=== PATIENT | male | born 1960 | race Caucasian/White ===

== ENCOUNTER 2019-12-21 15:43 | Observation (INO) | payer BC, SELFPAY ==
--- NOTE | 2019-12-21 15:45 | CTR_ITS ---
PROCEDURE INFORMATION: Exam: CT Abdomen And Pelvis With Contrast Exam date and time: 12/21/2019 6:26 PM Age: 59 years old Clinical indication: Abdominal pain; Patient HX: Adb pain; Additional info: Abd pain TECHNIQUE: Imaging protocol: Computed tomography of the abdomen and pelvis with intravenous contrast. Radiation optimization: All CT scans at this facility use at least one of these dose optimization techniques: automated exposure control; mA and/or kV adjustment per patient size (includes targeted exams where dose is matched to clinical indication); or iterative reconstruction. Contrast material: [id number]; Contrast volume: 95 ml; Contrast route: INTRAVENOUS (IV); COMPARISON: No relevant prior studies available. RADIATION DOSE METRICS: Total DLP (mGy-cm): 1504.09 FINDINGS: Liver: Normal. No mass. Gallbladder and bile ducts: Normal. No calcified stones. No ductal dilation. Pancreas: Normal. No ductal dilation. Spleen: Normal. No splenomegaly. Adrenals: Normal. No mass. Kidneys and ureters: Likely benign cysts in both kidneys, Hounsfield units measuring less than 20. No follow-up recommended. Nonobstructing bilateral renal calculi. No hydronephrosis. Stomach and bowel: Unremarkable. No obstruction. No mucosal thickening. Appendix: The appendix is inflamed with wall thickening and enhancement, gas and fluid in the lumen, an outer wall diameter of 13 mm, and periappendiceal fat stranding. Intraperitoneal space: Unremarkable. No free air. No significant fluid collection. Vasculature: Unremarkable. No abdominal aortic aneurysm. Lymph nodes: Unremarkable. No enlarged lymph nodes. Urinary bladder: Unremarkable as visualized. Reproductive: Prostate calcifications. Bones/joints: Chronic bilateral L5 pars fractures with grade 1 anterolisthesis. Soft tissues: Small bilateral fat containing inguinal hernias. CT/CT abdomen pelvis w con* [id number] IMPRESSION: 1. Acute appendicitis. 2. Nonobstructing renal calculi. COMMENTS: Consistent with the [employer]'s Incidental Findings Committee white paper (J Am Slick Radiol 2018): Any incidental renal lesion less than 1 cm or classified as too small to characterize, or any incidental cystic renal lesion characterized as simple-appearing, is likely benign. No follow-up imaging is recommended for these lesions per consensus recommendations based on imaging criteria. Radiation Dose CTDIVOL = (mGy): DLP = 1504.09 (mGy-cm)
[2019-12-21 16:00] VITALS: BP 160/92; PULSE 82; RESP 16; TEMP 36.9; O2SAT 97; BMI 19.5
[2019-12-21 16:32] LABS: Basophils # 0.1 10^3/uL (0.0-0.1); Basophils % 0.2 %; Eosinophils # 0.1 10^3/uL (0.0-0.8); Eosinophils % 0.2 %; Hematocrit 50.3 % (42.0-52.0); Hemoglobin 16.8 g/dL (11.7-16.6); Lymphocytes # 2.7 10^3/uL (0.8-4.8); Lymphocytes % 12.4 %; Mean Corpuscular HGB Conc 33.4 g/dL (30.0-36.0); Mean Corpuscular Hemoglobin 30.3 pg (28.0-34.0); Mean Corpuscular Volume 90.6 fL (80-94); Mean Platelet Volume 11.4 fL (7.4-10.4); Monocytes # 1.7 10^3/uL (0.2-0.9); Monocytes % 7.5 %; Neutrophils # 17.53 10^3/uL (1.8-7.7); Neutrophils % 79.3 %; Nucleated Red Blood Cells % 0 %; Platelet Count 215 10^3/cmm (130-400); Red Blood Count 5.55 10^6/uL (4.1-5.3); White Blood Count 22.1 10^3/uL (4.0-10.0)
[2019-12-21 16:51] LABS: Alanine Aminotransferase 17 U/L (0-41); Albumin Level 4.6 g/dL (3.5-5.2); Alkaline Phosphatase 98 IU/L (40-130); Aspartate Amino Transferase 15 U/L (0-40); Blood Urea Nitrogen 16 mg/dL (6-20); Calcium 9.9 mg/dL (8.5-10.5); Carbon Dioxide 23 mmol/L (22-29); Chloride 100 mmol/L (98-107); Glomerular Filtration Rate 86.4 mL/min (90-130); Glucose 98 mg/dL (65-115); Lipase 25 U/L (13-60); Osmolality Calculated 285 mOsm/kg (285-295); Sodium 137 mmol/L (136-145); Total Bilirubin 1.2 mg/dL (0.15-1.2); Total Protein 7.6 g/dL (6.6-8.7)
[2019-12-21 16:54] LABS: Anion Gap 17.4 (5-19); Potassium 3.4 mmol/L (3.5-5.1)
--- NOTE | 2019-12-21 17:56 | PC.NURSE ---
PATIENT UPDATED ON WAIT, ASSESSED. NO IMMEDIATE CONCERNS ARE NOTED. VS OBTAINED.
[2019-12-21 17:57] VITALS: BP 170/99; PULSE 79; RESP 17; O2SAT 99
[2019-12-21] MEDS: iohexol 300 mg/mL 100 mL Btl IV (18:56)
--- NOTE | 2019-12-21 19:03 | W.ED.ABDPA2 ---
HPI - Abdominal Pain General: Chief Complaint: Abdominal Pain Stated Complaint: sent from [facility] cat scan/possible intesine block Time Seen by Provider: 12/21/19 17:52 Source: patient Mode of arrival: ambulatory Limitations: no limitations History of Present Illness: HPI narrative: Raman is a nice 59-year-old male comes in complaining of abdominal pain. He states the pain feels like pressure diffusely throughout his abdomen. He has had associated nausea and vomiting but denies any hematic emesis, coffee-ground emesis or bloody or tarry stools. He denies any fevers or chills. He has not had any urinary symptoms such as dysuria or urinary frequency or urgency. Patient states he has been taking naproxen regularly until yesterday. He had been taking this for knee pain. Patient said he had a small bowel movement this morning that was nonbloody or non-melanotic. He came in after he was told by Mao Champion he needed to have a CT scan of his abdomen pelvis per the provider there. Patient states overall he feels a little better but still has pain diffusely throughout his abdomen. Associated Symptoms: Reports nausea and vomiting; Denies chills, coffee ground emesis, constipation, GI cramping, diarrhea, dysuria, fever(s), heartburn, hematochezia, hematuria, hematemesis, melena and syncope Review of Systems Const: Denies: fever(s), chills, body aches, fatigue, malaise or diaphoresis Eyes: Denies: change in vision, blurry vision, photophobia, eye discomfort, eye discharge, eye redness or yellow eyes ENMT: Denies: throat pain, odynophagia, hoarseness, swelling of lips/tongue, ear or mastoid pain, ear discharge, change in hearing or nasal discharge Card: Denies: chest pain, palpitations, irregular heart rhythm, edema, lightheadedness, syncope, pre-syncope, dyspnea on exertion or orthopnea Resp: Denies: dyspnea, productive cough, non-productive cough, wheezing, hemoptysis or chest congestion GI: Reports: abdominal pain, nausea and vomiting; Denies: hematemesis, coffee ground emesis, heartburn, diarrhea, constipation, GI cramping, hematochezia or melena : Denies: flank pain, dysuria, urinary frequency, urinary urgency or hematuria Musc: Denies: neck pain, back pain, extremity pain, extremity swelling, joint pain, joint swelling, joint redness, joint warmth or joint stiffness Skin/Breast: Denies: rash, pruritus, erythema, skin pain or skin tenderness Neuro: Denies: headache(s), numbness in extremities, weakness in extremities, sensory changes, lack of coordination, difficulty walking, dizziness, vertigo, confusion, Slurred speech present or seizure-like activity Ab/Lymph: Denies: easy bruising, easy bleeding, petechiae, purpura or enlarged lymph nodes All/Imm: Denies: urticaria, throat swelling, tongue swelling, facial swelling or acute wheezing PFSH ED PFSH: Medical History No pertinent past medical history Surgical History No pertinent past surgical history Physical Exam Const: COMMON NORMALS: no acute distress, patient oriented x3, no limitations and alert GENERAL APPEARANCE: cooperative HENMT: COMMON NORMALS: normocephalic, atraumatic, external ears normal, EAC's normal and Normal external nose present HEAD & SCALP: normal to inspection, normocephalic and atraumatic FACE & SINUS: normal facial exam and face symmetric NOSE: Normal external nose present and Normal nares present EXTERNAL EAR: Yes external ears normal EXTERNAL AUDITORY CANAL: EAC's normal MOUTH: Normal oral and palatal mucosa present, lip normal and tongue normal Eye: COMMON NORMALS: Equal, round and reactive pupils present and conjunctivae normal GENERAL EYE: appearance normal, both eyes and all related structures ALIGNMENT: Yes alignment normal PERIORBITAL: periorbital findings normal EYELID: eyelids normal CONJUNCTIVA: Yes conjunctivae normal SCLERA: sclerae normal PUPIL: Yes Equal, round and reactive pupils present Neck/C-Spine: COMMON NORMALS: full ROM, no lymphadenopathy, supple, no meningeal signs and no JVD GENERAL: Yes normal visual inspection and Yes trachea midline Chest: COMMONS NORMALS: normal inspection of the chest and normal palpation of entire chest wall Resp: COMMON NORMALS: normal respiratory effort, No retractions, No use of accessory muscles and clear to auscultation bilaterally EFFORT & INSPECTION: Yes able to speak in complete sentences and Yes symmetric chest movement AUSCULTATION: clear to auscultation bilaterally, no crackles, no rales, no rhonchi and no wheezes Cardio: COMMON NORMALS: no JVD, regular rate, regular rhythm, S1 normal heart sound present and S2 normal heart sound present RATE: regular rate RHYTHM: regular rhythm HEART SOUNDS: S1 normal heart sound present, S2 normal heart sound present, no click, no gallops, no murmurs and no rubs GI: COMMON NORMALS: Soft to palpation and No hepatosplenomegaly present PALPATION: Yes Soft to palpation, Yes Tenderness to palpation present (GI) (Mild diffusely.), No Guarding due to palpation present (GI), No Rigid due to palpation, Yes No hepatosplenomegaly present, No Hernia present, No Palpable mass present and No Pulsatile mass present : COMMON NORMALS: Yes no CVA tenderness BLADDER/KIDNEY EXAM: Yes no CVA tenderness Back/Pelvis: COMMON NORMALS: no CVA tenderness, thoracic and lumbar spine normal to inspection, no thoracic nor lumbar tenderness and thoraco-lumbar ROM normal Extremity: COMMON NORMALS: normal to inspection, full ROM, capillary refill normal, no joint enlargement, no clubbing, cyanosis or edema and no calf tenderness Neuro: COMMON NORMALS: patient oriented x3, CN's II-XII intact bilaterally, moves all extremities, no focal motor deficits and no sensory deficits noted SENSORIUM/ORIENTATION: Yes alert MENINGEAL SIGNS: Yes no meningeal signs SPEECH: speech normal Psych: COMMON NORMALS: mental status grossly normal, Normal thought process present, cooperative, normal affect, speech normal and activity/motor behavior normal SPEECH: Yes normal speech THOUGHT PROCESS: Normal thought process present Skin: COMMON NORMALS: no rashes or lesions noted, turgor normal, no jaundice, no petechiae and no mottling GENERAL SKIN EXAM: no rashes or lesions noted and turgor normal Course Vital Signs: Vital signs: Vital Signs Temperature 98.5 F 12/21/19 21:00 Pulse Rate 78 12/21/19 21: Respiratory Rate 18 12/21/19 21:22 Blood Pressure 160/78 12/21/19 21: Pulse Oximetry 98 12/21/19 21: MDM - Abdominal Pain MDM Narrative: Medical decision making narrative: The case was reviewed with Dr. Lowery. CT shows appendicitis but no definitive rupture or abscess. The patient is tender diffusely but there is no signs of definite peritonitis. We will cover him with Cipro and Flagyl he is allergic to Zosyn. His pain is under control and he is not vomiting. Dr. Lowery plans for surgery in the a.m. Lab Data: Attestation: I reviewed the patient's lab results. Labs: Lab Results 12/21/19 12/21/19 12/21/19 Range/Units 16:25 16:25 19:18 WBC 22.1 H (4.0-10.0) 10^3/ uL RBC 5.55 H (4.1-5.3) 10^6/u L Hgb 16.8 H (11.7-16.6) g/dL Hct 50.3 (42.0-52.0) % MCV 90.6 (80-94) fL MCH 30.3 (28.0-34.0) pg MCHC 33.4 (30.0-36.0) g/dL RDW 13.0 (12.1-15.1) % Plt Count 215 (130-400) 10^3/c mm MPV 11.4 H (7.4-10.4) fL Neut % (Auto) 79.3 % Lymph % (Auto) 12.4 % [place] % (Auto) 7.5 % Eos % (Auto) 0.2 % Baso % (Auto) 0.2 % Neut # (Auto) 17.53 H (1.8-7.7) 10^3/u L Lymph # (Auto) 2.7 (0.8-4.8) 10^3/u L [place] # (Auto) 1.7 H (0.2-0.9) 10^3/u L Eos # (Auto) 0.1 (0.0-0.8) 10^3/u L Baso # (Auto) 0.1 (0.0-0.1) 10^3/u L Nucleated RBC % (a uto) 0 % Nucleated RBCs # 0.0 /100WBC Sodium 137 (136-145) mmol/L Potassium 3.4 L (3.5-5.1) mmol/L Chloride 100 (98-107) mmol/L Carbon Dioxide 23 (22-29) mmol/L Anion Gap 17.4 (5-19) BUN 16 (6-20) mg/dL Creatinine 0.9 (0.7-1.2) mg/dL GFR Calculation 86.4 L (90-130) mL/min Glucose 98 (65-115) mg/dL Calculated Osmolal ity 285 (285-295) mOsm/k g Lactic Acid (0.5-2.2) mmol/L Calcium 9.9 (8.5-10.5) mg/dL Magnesium 2.3 (1.7-2.3) mg/dL Total Bilirubin 1.2 (0.15-1.2) mg/dL AST 15 (0-40) U/L ALT 17 (0-41) U/L Alkaline Phosphata se 98 (40-130) IU/L Total Protein 7.6 (6.6-8.7) g/dL Albumin 4.6 (3.5-5.2) g/dL Globulin 3.0 (1.3-4.6) g/dL Lipase 25 (13-60) U/L 12/21/19 Range/Units 19:28 WBC (4.0-10.0) 10^3/ uL RBC (4.1-5.3) 10^6/u L Hgb (11.7-16.6) g/dL Hct (42.0-52.0) % MCV (80-94) fL MCH (28.0-34.0) pg MCHC (30.0-36.0) g/dL RDW (12.1-15.1) % Plt Count (130-400) 10^3/c mm MPV (7.4-10.4) fL Neut % (Auto) % Lymph % (Auto) % [place] % (Auto) % Eos % (Auto) % Baso % (Auto) % Neut # (Auto) (1.8-7.7) 10^3/u L Lymph # (Auto) (0.8-4.8) 10^3/u L [place] # (Auto) (0.2-0.9) 10^3/u L Eos # (Auto) (0.0-0.8) 10^3/u L Baso # (Auto) (0.0-0.1) 10^3/u L Nucleated RBC % (a uto) % Nucleated RBCs # /100WBC Sodium (136-145) mmol/L Potassium (3.5-5.1) mmol/L Chloride (98-107) mmol/L Carbon Dioxide (22-29) mmol/L Anion Gap (5-19) BUN (6-20) mg/dL Creatinine (0.7-1.2) mg/dL GFR Calculation (90-130) mL/min Glucose (65-115) mg/dL Calculated Osmolal ity (285-295) mOsm/k g Lactic Acid 0.8 (0.5-2.2) mmol/L Calcium (8.5-10.5) mg/dL Magnesium (1.7-2.3) mg/dL Total Bilirubin (0.15-1.2) mg/dL AST (0-40) U/L ALT (0-41) U/L Alkaline Phosphata se (40-130) IU/L Total Protein (6.6-8.7) g/dL Albumin (3.5-5.2) g/dL Globulin (1.3-4.6) g/dL Lipase (13-60) U/L Imaging Data ^: CT Abd/Pel: Radiologist's impression: [address] [place] [address] CT Scan Report Signed with Addenda Patient: Raman John Unit #: [id number] : 1960 Age/Sex: 59 / M ADM Date: 12/21/19 Loc: ER Room/Bed: Attending Dr: Ordering Provider/Ordering MD: Roby Farooq MD Date of Service: 12/21/19 Procedure(s): CT abdomen pelvis w con* [id number] Accession Number(s): [id number] Report Number: [id number]/CT abdomen pelvis w con* [id number] THIS REPORT CONTAINS FINDINGS THAT MAY BE CRITICAL TO PATIENT CARE. The findings were verbally communicated via telephone conference with Dr Stern at 8:04 PM CDT on 12/21/2019. The findings were acknowledged and understood. Radiation Dose CTDIVOL = (mGy): DLP = 1504.09 (mGy-cm) Addendum Dictated By: Sean Bonilla Addendum Signed By: Sean Bonilla Signed Date/Time: 12/21/19 2 005 Addendum Cosigned By: PROCEDURE INFORMATION: Exam: CT Abdomen And Pelvis With Contrast Exam date and time: 12/21/2019 6:26 PM Age: 59 years old Clinical indication: Abdominal pain; Patient HX: Adb pain; Additional info: Abd pain TECHNIQUE: Imaging protocol: Computed tomography of the abdomen and pelvis with intravenous contrast. Radiation optimization: All CT scans at this facility use at least one of these dose optimization techniques: automated exposure control; mA and/or kV adjustment per patient size (includes targeted exams where dose is matched to clinical indication); or iterative reconstruction. Contrast material: [id number]; Contrast volume: 95 ml; Contrast route: INTRAVENOUS (IV); COMPARISON: No relevant prior studies available. RADIATION DOSE METRICS: Total DLP (mGy-cm): 1504.09 FINDINGS: Liver: Normal. No mass. Gallbladder and bile ducts: Normal. No calcified stones. No ductal dilation. Pancreas: Normal. No ductal dilation. Spleen: Normal. No splenomegaly. Adrenals: Normal. No mass. Kidneys and ureters: Likely benign cysts in both kidneys, Hounsfield units measuring less than 20. No follow-up recommended. Nonobstructing bilateral renal calculi. No hydronephrosis. Stomach and bowel: Unremarkable. No obstruction. No mucosal thickening. Appendix: The appendix is inflamed with wall thickening and enhancement, gas and fluid in the lumen, an outer wall diameter of 13 mm, and periappendiceal fat stranding. Intraperitoneal space: Unremarkable. No free air. No significant fluid collection. Vasculature: Unremarkable. No abdominal aortic aneurysm. Lymph nodes: Unremarkable. No enlarged lymph nodes. Urinary bladder: Unremarkable as visualized. Reproductive: Prostate calcifications. Bones/joints: Chronic bilateral L5 pars fractures with grade 1 anterolisthesis. Soft tissues: Small bilateral fat containing inguinal hernias. CT/CT abdomen pelvis w con* [id number] IMPRESSION: 1. Acute appendicitis. 2. Nonobstructing renal calculi. COMMENTS: Consistent with the [place] [employer]'s Incidental Findings Committee white paper (J Am Slick Radiol 2018): Any incidental renal lesion less than 1 cm or classified as too small to characterize, or any incidental cystic renal lesion characterized as simple-appearing, is likely benign. No follow-up imaging is recommended for these lesions per consensus recommendations based on imaging criteria. Radiation Dose CTDIVOL = (mGy): DLP = 1504.09 (mGy-cm) Dictated By: Sean Bonilla Signed By: Sean Bonilla Signed Date/Time: 12/21/192003 DD/ 02 Discharge Plan Discharge Patient Disposition: Admitted As Inpatient Admit Provider: Bautista Lowery Clinical Impression: Acute appendicitis Qualifiers: Acute appendicitis type: unspecified acute appendicitis type Qualified Code(s): K35.80 - Unspecified acute appendicitis Condition: Stable Discharge Date/Time: 12/21/19 21:23 Coding Level of Care Code ED [employer] Pcb Draftsman for Chg Fwd Exam Comprehensive
[2019-12-21] MEDS: ondansetron 2 mg/ML SDV 2 mL 4 MG IVP (19:09)
[2019-12-21] MEDS: ciprofloxacin 400 MG/200 ML PREMIX 200 MG IV (19:14)
[2019-12-21] MEDS: metroNIDAZOLE IV 500 MG/100 ML PREMIX 100 MG IV (19:19)
[2019-12-21 19:56] LABS: Lactic Sepsis W/Reflex 0.8 mmol/L (0.5-2.2)
[2019-12-21 19:59] LABS: Magnesium 2.3 mg/dL (1.7-2.3)
[2019-12-21 20:00] VITALS: PULSE 79; RESP 16; TEMP 36.9; O2SAT 95
[2019-12-21 21:00] VITALS: BP 146/82; PULSE 79; RESP 12; TEMP 36.9; O2SAT 95
[2019-12-21 21:22] VITALS: BP 160/78; PULSE 78; RESP 18; O2SAT 98
[2019-12-21] MEDS: lidocaine 1% 5 ML in potassium chloride premix 100 ML 25 ML IV (23:13)
[2019-12-21] MEDS: sodium chloride 0.9% 1,000 ML 100 ML IV (23:14)
[2019-12-21 23:53] VITALS: BP 138/85; PULSE 77; RESP 12; TEMP 36.9; O2SAT 96
[2019-12-22] VITALS (13 sets, daily range): BP systolic 113–142; BP diastolic 69–89; PULSE 56–80; RESP 14–20; TEMP 36.6–37.3; O2SAT 90–99
[2019-12-22] MEDS: ketorolac 30 mg/mL INJ 15 MG IVP (00:44)
[2019-12-22] MEDS: metroNIDAZOLE IV 500 MG/100 ML PREMIX 100 MG IV (03:50)
[2019-12-22 05:46] LABS: Basophils # 0.1 10^3/uL (0.0-0.1); Basophils % 0.3 %; Eosinophils # 0.1 10^3/uL (0.0-0.8); Eosinophils % 0.6 %; Hematocrit 44.4 % (42.0-52.0); Hemoglobin 14.9 g/dL (11.7-16.6); Lymphocytes # 1.8 10^3/uL (0.8-4.8); Lymphocytes % 10.5 %; Mean Corpuscular HGB Conc 33.6 g/dL (30.0-36.0); Mean Corpuscular Hemoglobin 30.5 pg (28.0-34.0); Mean Corpuscular Volume 90.8 fL (80-94); Mean Platelet Volume 11.6 fL (7.4-10.4); Monocytes # 1.4 10^3/uL (0.2-0.9); Monocytes % 8.3 %; Neutrophils # 13.85 10^3/uL (1.8-7.7); Neutrophils % 79.9 %; Nucleated Red Blood Cells % 0 %; Platelet Count 185 10^3/cmm (130-400); Red Blood Count 4.89 10^6/uL (4.1-5.3); White Blood Count 17.3 10^3/uL (4.0-10.0)
[2019-12-22 06:21] LABS: Anion Gap 14.9 (5-19); Blood Urea Nitrogen 16 mg/dL (6-20); Calcium 9.1 mg/dL (8.5-10.5); Carbon Dioxide 21 mmol/L (22-29); Chloride 107 mmol/L (98-107); Glomerular Filtration Rate 98.9 mL/min (90-130); Glucose 115 mg/dL (65-115); Osmolality Calculated 290 mOsm/kg (285-295); Potassium 3.9 mmol/L (3.5-5.1); Sodium 139 mmol/L (136-145)
--- NOTE | 2019-12-22 06:48 | P.ANESASSM_ITS ---
Pre-Anesthetic Assessment Pre-Anesthetic Assessment: Height/Weight: Height 1.75 m Weight 59.874 kg Temp Pulse Resp BP Pulse Ox 99.2 F 78 20 H 126/77 96 12/22/19 06:30 12/22/19 06:30 12/22/19 06:30 12/22/19 06:30 12/22/19 06:30 Preop Diagnosis: appendicitis Proposed Procedure: Operation Date: 12/22/19 07:00 Proposed Procedures p Laparoscopic, Possible Open Appendectomy(Not Applicable) - Bautista Loewry MD Familial anesthetic complications: none Was Beta Pio taken within 24 brad rs: N/A Last intake: Intake Last Liquid Date 12/22/19 Last Liquid Time 00:00 Last Solid Date 12/21/19 Last Solid Time 20:00 Social: Social History: No alcohol and No tobacco Exam: Pre-Anes Outpt Exam: alert, oriented x 3, clear to auscultation bilaterally and regular rate & rhythm Airway: Cervical ROM: WNL MP: 3 Dentition: Chipped and Other (missing) Pulmonary: Comments: allergies Musc/skel: Musc/skel: Lower Back Pain Anesthetic Plan: ASA status: 1 Anesthesia: General Risk of > 500 ml blood loss (7ml/kg in children): No Meds/Allergies Current Medications: Current Medications Generic Name Dose Route Start Last Admin Trade Name Freq PRN Reason Stop Dose Admin Sodium Chloride 1,000 mls @ 100 m ls/hr 12/21/19 22:23 12/21/19 23:14 Sodium Chloride 0.9% IV 100 mls/hr .Q10H CHRYSTAL Administration Metronidazole 500 mg in 100 mls @ 100 mls/hr 12/22/19 03:00 12/22/19 05:00 Flagyl Iv IV Infused Q8H CHRYSTAL Infusion Protocol Ketorolac Trometha mine 15 mg 12/21/19 23:58 12/22/19 00:44 Toradol IVP 12/26/19 23:57 15 mg Q6H PRN Administration PAIN PFSH Anesthesia PFSH: Medical History No pertinent past medical history Surgical History No pertinent past surgical history Data Anesthesia CBC & Chem 7: 12/22/19 05:23 12/22/19 05:23 Other Labs: Laboratory Results - last 48 hr 12/21/19 12/21/19 12/21/19 16:25 16:25 19:18 WBC 22.1 H RBC 5.55 H Hgb 16.8 H Hct 50.3 MCV 90.6 MCH 30.3 MCHC 33.4 RDW 13.0 Plt Count 215 MPV 11.4 H Neut % (Auto) 79.3 Lymph % (Auto) 12.4 [place] % (Auto) 7.5 Eos % (Auto) 0.2 Baso % (Auto) 0.2 Neut # (Auto) 17.53 H Lymph # (Auto) 2.7 [place] # (Auto) 1.7 H Eos # (Auto) 0.1 Baso # (Auto) 0.1 Nucleated RBC % (auto) 0 Nucleated RBCs # 0.0 Sodium 137 Potassium 3.4 L Chloride 100 Carbon Dioxide 23 Anion Gap 17.4 BUN 16 Creatinine 0.9 GFR Calculation 86.4 L Glucose 98 Calculated Osmolality 285 Lactic Acid Calcium 9.9 Magnesium 2.3 Total Bilirubin 1.2 AST 15 ALT 17 Alkaline Phosphatase 98 Total Protein 7.6 Albumin 4.6 Globulin 3.0 Lipase 25 12/21/19 12/22/19 12/22/19 19:28 05:23 05:23 WBC 17.3 H RBC 4.89 Hgb 14.9 Hct 44.4 MCV 90.8 MCH 30.5 MCHC 33.6 RDW 13.0 Plt Count 185 MPV 11.6 H Neut % (Auto) 79.9 Lymph % (Auto) 10.5 [place] % (Auto) 8.3 Eos % (Auto) 0.6 Baso % (Auto) 0.3 Neut # (Auto) 13.85 H Lymph # (Auto) 1.8 [place] # (Auto) 1.4 H Eos # (Auto) 0.1 Baso # (Auto) 0.1 Nucleated RBC % (auto) 0 Nucleated RBCs # 0.0 Sodium 139 Potassium 3.9 Chloride 107 Carbon Dioxide 21 L Anion Gap 14.9 BUN 16 Creatinine 0.8 GFR Calculation 98.9 Glucose 115 Calculated Osmolality 290 Lactic Acid 0.8 Calcium 9.1 Magnesium Total Bilirubin AST ALT Alkaline Phosphatase Total Protein Albumin Globulin Lipase Cardiac Studies: No Data to Display
--- NOTE | 2019-12-22 06:51 | PM.HP ---
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 Over the course of yesterday the pain got progressively worse but is more generalized patient had nausea but no vomiting. Denies any fevers chills constipation or diarrhea. No similar episodes in the past. No prior colonoscopy. No prior abdominal surgeries. Review of Systems General: Reports: 10 or more systems reviewed and unremarkable except in HPI and below Medications/Allergies Allergies Allergy/AdvReac Type Severity Reaction Status Date / Time Penicillins Allergy ALGY-Anaphy Verified 12/21/19 16:09 laxis PFSH Acute PFSH: Medical History No pertinent past medical history Surgical History No pertinent past surgical history Vitals/I&O/Wt Last Vital Signs Temp 99.2 F 12/22/19 06:30 Pulse 78 12/22/19 06:30 Resp 20 H 12/22/19 06:30 BP 126/77 12/22/19 06:30 Pulse Ox 96 12/22/19 06:30 12/21/19 12/21/19 12/22/19 14:59 22:59 06:59 Intake Total 350 / 350 Balance 350 / 350 Weight last 48 hrs Weight 132 lb Physical Exam Narrative: EXAM NARRATIVE: HEENT: Normocephalic Eye: Sclera /conjunctiva normal Respiratory and chest: Bilateral clear breath sounds on auscultation Cardiovascular: Normal S1 and S2 heart sounds Abdomen: Soft to palpation, tender right lower quadrant, voluntary guarding Neurological: Oriented to place person and time Skin: Intact, no lesions appreciated on gross exam Data : 12/22/19 05:23 12/22/19 05:23 A&P Assessment and plan (1) Acute appendicitis: 59-year-old male with right lower quadrant pain, leukocytosis and CT scan findings consistent with acute appendicitis. Plan for laparoscopic possible open appendectomy Procedure, risks, benefits and alternatives have been discussed with the patient who wishes to proceed with surgery. Status: Acute Qualifiers: Acute appendicitis type: unspecified acute appendicitis type Qualified Code(s): K35.80 - Unspecified acute appendicitis Attestations Medical Necessity Statement*: Acute appendicitis requiring surgery today Coding Level of Care Code Acute Checker/Stocker for [facility] Fwd Diagnoses Acute appendicitis K35.80 Acute appendicitis type: unspecified acute appendicitis type
--- NOTE | 2019-12-22 07:00 | PM.OP ---
Operative Report Date of procedure: December 22, 2019 Pre-op Diagnosis: Acute appendicitis Post-op Diagnosis: Acute gangrenous appendicitis Procedure Done: Laparoscopic appendectomy Specimens removed/disposition: Appendix Surgeon: Bautista Lowery Anesthesia: General Condition: stable Disposition: PACU Procedure: The patient was taken to the Operating Room and intubated under general anesthesia after antibiotic had been administered. Using a 15 blade, a 1-cm infraumbilical incision was made and using open Coby technique, the peritoneal cavity was entered. A 12mm port with balloon was placed and 14 mm of pneumoperitoneum was created and 10-mm 30 degree scope was introduced. Two separate 5mm ports were placed in the left and right lower quadrant under direct visualization. The appendix was noted in the right lower quadrant and appeared acutely inflamed and gangrenous. Using [place] forceps, an opening was made in the mesoappendix near the base of the appendix. An Endo BALDO stapler 45mm long 3.5mm blue load was introduced to divide the appendix at it's base. Using electrocautery, the mesoappendix including the appendicular artery was divided. There was no bleeding noted and the staple line appeared intact. The right lower quadrant was irrigated with saline and an EndoCatch bag was introduced to remove the appendix. All three ports were removed under direct visualization and there was no bleeding noted on the port sites. 10cc of 0.5% Marcaine was infiltrated at the port sites. The fascia at the umbilical port was closed using figure of eight 0-Vicryl sutures and subcutaneous tissue was approximated using 3-0 Vicryl and skin at all 3 port sites was closed using 4-0 Monocryl and Dermabond.
[2019-12-22] MEDS: ciprofloxacin 400 MG/200 ML PREMIX 200 MG IV (07:10)
--- NOTE | 2019-12-22 08:07 | P.DS_ITS ---
Discharge Providers Date of Admission: 12/21/19 20:10 Date of Discharge: December 22, 2019 Attending Provider at Admission: Bautista Lowery MD Attending Provider at Discharge: Bautista Lowery MD Diagnoses at Discharge Discharge Diagnosis (1) Acute appendicitis: Status: Resolved Qualifiers: Acute appendicitis type: unspecified acute appendicitis type Qualified Code(s): K35.80 - Unspecified acute appendicitis Reason for Visit Reason for Visit: sent from [facility] cat scan/possible intesine block Hospital Course Discharge Summary: This is a 59-year-old gentleman who presented to the ER yes terday with complaints of abdominal pain and was noted on CT scan to rule out appendicitis. Patient underwent laparoscopic appendectomy. He tolerated the procedure well. At time of discharge he was tolerating clear liquid diet ambulating and pain controlled with oral pain medications. His vital signs are stable. Discharge Data Data Completed and Pending: Completed Studies During Hospitalization Category Date Time Status CT abdomen pelvis w con* [id number] Urge nt Cat Scan 12/21/19 15:45 Completed Pending at discharge Category Date Time Status Pathology: Surgic al [PTH] Routine Pth 12/22/19 07:41 Ordered Labs from last 24 hours 12/22/19 12/22/19 12/21/19 05:23 05:23 19:28 WBC 17.3 H RBC 4.89 Hgb 14.9 Hct 44.4 MCV 90.8 MCH 30.5 MCHC 33.6 RDW 13.0 Plt Count 185 MPV 11.6 H Neut % (Auto) 79.9 Lymph % (Auto) 10.5 [place] % (Auto) 8.3 Eos % (Auto) 0.6 Baso % (Auto) 0.3 Neut # (Auto) 13.85 H Lymph # (Auto) 1.8 [place] # (Auto) 1.4 H Eos # (Auto) 0.1 Baso # (Auto) 0.1 Nucleated RBC % (a uto) 0 Nucleated RBCs # 0.0 Sodium 139 Potassium 3.9 Chloride 107 Carbon Dioxide 21 L Anion Gap 14.9 BUN 16 Creatinine 0.8 GFR Calculation 98.9 Glucose 115 Calculated Osmolal ity 290 Lactic Acid 0.8 Calcium 9.1 Magnesium Total Bilirubin AST ALT Alkaline Phosphata se Total Protein Albumin Globulin Lipase 12/21/19 12/21/19 12/21/19 19:18 16:25 16:25 WBC 22.1 H RBC 5.55 H Hgb 16.8 H Hct 50.3 MCV 90.6 MCH 30.3 MCHC 33.4 RDW 13.0 Plt Count 215 MPV 11.4 H Neut % (Auto) 79.3 Lymph % (Auto) 12.4 [place] % (Auto) 7.5 Eos % (Auto) 0.2 Baso % (Auto) 0.2 Neut # (Auto) 17.53 H Lymph # (Auto) 2.7 [place] # (Auto) 1.7 H Eos # (Auto) 0.1 Baso # (Auto) 0.1 Nucleated RBC % (a uto) 0 Nucleated RBCs # 0.0 Sodium 137 Potassium 3.4 L Chloride 100 Carbon Dioxide 23 Anion Gap 17.4 BUN 16 Creatinine 0.9 GFR Calculation 86.4 L Glucose 98 Calculated Osmolal ity 285 Lactic Acid Calcium 9.9 Magnesium 2.3 Total Bilirubin 1.2 AST 15 ALT 17 Alkaline Phosphata se 98 Total Protein 7.6 Albumin 4.6 Globulin 3.0 Lipase 25 Vitals: Last Vital Signs Temp 99.2 F 12/22/19 06:30 Pulse 78 12/22/19 06:30 Resp 20 H 12/22/19 06:30 BP 126/77 12/22/19 06:30 Pulse Ox 96 12/22/19 06:30 Discharge Plan Discharge Condition: Stable Prescriptions: [place] 5-325 mg tablet 1 tab PO Q6H 7 Days Qty: 20 RF: 0 docusate sodium [Colace] 100 mg capsule 100 mg PO BID Qty: 30 RF: 0 ciprofloxacin HCl [Cipro] 500 mg tablet 500 mg PO BID Qty: 10 RF: 0 metronidazole [Flagyl] 500 mg tablet 500 mg PO Q8H Qty: 15 RF: 0 ondansetron HCl [Zofran] 4 mg tablet 4 mg PO Q6H PRN (Reason: nausea and vomiting) Qty: 20 RF: 0 Discharge Orders: Discharge Order (Routine); Ordered 12/22/19 Ordered By: Bautista Lowery Referrals: Bautista Lowery MD [Physician] - 2 weeks Discharge Diet: Advance as tolerated Activity Restrictions/Additional Instructions: 1. Up and walking as tolerated. 2. Ok to shower in 48 hours after surgery. 3. Remove Dermabond dressing in 7-10 days. 4. Do not lift more than 10 pounds. 5. Do not operate heavy machinery or drive while using pain medications. 6. Advised to return to ER or contact my office if there are any signs of infection like, increasing pain, fevers, chills, redness or drainage of pus. 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
--- NOTE | 2019-12-22 08:31 | SUR.PHASEI ---
PT AWAKE ALERT ON RA TAKING ICE CHIPS PT DENIES PAIN AND NAUSEA,VSS ABD SOFT , CALLING REPORT TO FLOOR..
--- NOTE | 2019-12-22 08:55 | SUR.PHASEI ---
PT TO FLOOR PT AWAKE WALKED TO BED WITHOUT ASSIST, VSS PT IV ANTIBIOTIC STILL IN FUSING , HANDOFF AT BEDSIDE.
[2019-12-22] MEDS: sodium chloride 0.9% 1,000 ML 100 ML IV (09:01)
[2019-12-22] MEDS: HYDROcodone-acetaminophen 5-325 mg Tablet 1 TAB PO (10:58)
--- NOTE | 2019-12-22 11:12 | PC.CHAP ---
Pastoral Care Encounter/Spiritual Assessment Type of Contact [] Declined classroom aide visit [] Patient/Family/Request visit [] Outpatient visit [] Follow-up visit [] Physician referral [] Code/Alert [x] Routine visit [] Staff referral [] Actively dying [] Patient sleeping [] Family support [] [] Out of room [] Palliative care [] [x] Receiving care in room [] Pre-surgical visit [] Trauma [] Long length of stay [] ICU visit [] Other: Relational/Emotional Strength [] Patient feels connected with others/family/visitors/staff [] Distress [] Loneliness/isolation [] Abandonment Spirituality of Patient [] Person of [place] [] Attends Yarsani of their [place] [] Believes in Prayer [] Reads Bible or Gnosticism materials [] There are Spiritual issues to be addressed Manager Workers Compensation Interventions [] Prayer [] Active listening [] Non-anxious presence [] Spiritual/emotional support [] Crisis/trauma care [] Spiritual counseling [] Bereavement support [] Provided bereavement packet [] Provided Bible/devotional materials [] Provided toy/stuffed animal, coloring book to patient or family member [] Provided Communion [] Anointing/[place] [] Salvation [] Completed spiritual assessment [] Other: Impact on Illness or Injury [] Angry [x] Fearful [] Anxious [] Often cries [] Exhaustion [x] Unable to work [] Unable to attend rastafarian [] Unable to walk/stand [] Unable to read [x] Unable to drive [] Unable to eat/drink [] Unable to sleep [] Unable to be with family [] Patient intubated [] Other: Summary Going into surgery this afternoon has a good attitude not sure what is wrong? Time spent with patient 10 mins
== END 2019-12-22 13:50 | disposition home or self-care (01) ==
LOC: ER 20:18 → MEDSURG 20:53
PROVIDERS: Emergency Medicine; Admitting Provider Surgery; Emergency Provider Emergency Medicine; Visit Provider Surgery
PROC: 0DTJ4ZZ Resection of Appendix, Percutaneous Endoscopic Approach (ICD-10-PCS; CPT 44970; principal; 2019-12-22 07:00)
DX: K35.891 Other acute appendicitis without perforation, with gangrene (principal)
CPT/HCPCS: 44970; 12345; 36415; 74177; 80048; 80053; 83605; 83690; 83735; 85025; 88304; 96365; 96366; 96367; 96375; 99283; 99285; G0378; J0744; J1100; J1885; J2405; J2704; J2710; J3010; J3480; J3490; J7030; Q9967; S0030